=== PATIENT | female | born 1950 | race Caucasian/White ===

== ENCOUNTER 2024-04-05 09:47 | Day surgery (SDC) | payer MEDICARE ==
[2024-03-30 15:58] VITALS: BP 144/84
[~2024-04-05] VITALS: Ht 170.2 cm; Wt 77.7 kg
[~2024-04-05 09:47] MED LIST: IBLOOD GLUCOSE TEST STRIP 1 EA TEST VI PRN; LACTATED RINGER'S 1,000 ML IV SCH; LIDOCAINE HCL 1% 5 ML SDV INJ ONE
[2024-04-05 10:01] VITALS: BP 150/83
[2024-04-05] MEDS ORDERED: LIDOCAINE HCL 2% 5 ML SDV ONE (12:03)
[2024-04-05] MEDS ORDERED: propofoL 200 MG/20 ML VIAL ONE ×2 (12:28→12:29)
[2024-04-05] MEDS ORDERED: FAMOTIDINE 20 MG/ 2 ML VIAL IV PRN (12:45)
[2024-04-05] MEDS ORDERED: OXYCODONE/APAP 5/325 TAB PO PRN (12:45)
[2024-04-05] MEDS ORDERED: NALOXONE HCL 0.4 MG SYR IV PRN (12:45)
[2024-04-05] MEDS ORDERED: MAGNESIUM HYDROXIDE/AL HYDROX 30 ML CUP PO PRN (12:45)
[2024-04-05] MEDS ORDERED: ondansetron HCL 4 MG/2 ML VIAL IV PRN (12:45)
[2024-04-05] MEDS ORDERED: METOCLOPRAMIDE HCL 10 MG/2 ML SDV IV PRN (12:45)
[2024-04-05] MEDS ORDERED: FAMOTIDINE 20 MG TAB PO PRN (12:45)
[2024-04-05 13:01] VITALS: BP 155/92
--- NOTE | 2024-04-05 13:13 | NUR ---
04/05/24 1313 Teena Garcia PATIENT TRANSITIONS HERSELF WITH HER FEET OVER THE EDGE OF THE BED AND SHE TOLERATES THAT WELL. DISCHARGE INSTRUCTIONS ARE REVIEWED AND SHE VERBALIZES UNDERSTANDING. SHE IS GETTING DRESSED BEHIND THE CURTAIN.
--- NOTE | 2024-04-05 18:59 | OR ---
[facility] [address] [place] [id number] Signed DATE OF OPERATION: 04/05/2024 SURGEON: Carolina Fay DO PREOPERATIVE DIAGNOSES: 1. Postmenopausal bleeding. 2. Thickened endometrium on ultrasound. POSTOPERATIVE DIAGNOSES: 1. Postmenopausal bleeding. 2. Thickened endometrium on ultrasound. 3. Rectocele. PROCEDURES PERFORMED: 1. Hysteroscopic dilation and curettage. 2. Polypectomy. ANESTHESIA: MAC. ESTIMATED BLOOD LOSS: 5 mL. FLUIDS DEFICIT: 55 mL. SPECIMENS: Endometrial polyp and curettings. FINDINGS: Normal external genitalia with normal clitoris, urethral meatus, bilateral [place]'s, Bartholin's glands. There is significant rectocele grade 2-3 with good apical and anterior compartment support. On hysteroscopy, normal endocervical canal. There is a small endometrial polyp on the anterior endometrial surface. Otherwise, thin atrophic appearing endometrium consistent with postmenopausal status. Normal uterine anatomy restored. COMPLICATIONS: None. Electronically Signed By: CAROLINA FAY DO (JD) 04/05/24 1859 PATIENT NAME: VAMSHI WELSH OPERATIVE REPORT DATE OF : 54 REPORT #: [id number] PHYSICIAN: CAROLINA FAY DO (JD) PCP: JANELL BAILEY MD REPORT IS CONFIDENTIAL AND NOT TO BE RELEASED WITHOUT AUTHORIZATION [facility] [address] [place] [id number] Signed INDICATIONS: Ms. Welsh is a very pleasant 73-year-old postmenopausal female, who presented with some postcoital bleeding. An ultrasound was performed that demonstrated thickened endometrium consistent with endometrial polyp. The patient was consented for hysteroscopy, dilation and curettage. The patient elected to have the procedure performed in the OR. Risks, benefits, and alternatives were discussed in detail with the patient. The patient understands and wished to proceed with the procedure. DESCRIPTION OF PROCEDURE: The patient was taken to the OR where a time-out was performed to confirm correct patient and correct procedure. MAC anesthesia was adequately established. The patient was prepped and draped in dorsal lithotomy position with her feet in Yellofin stirrups. ICPs were on and running and no preoperative antibiotics or heparin was indicated. A weighted speculum was placed in the vagina. The anterior lip of the cervix was grasped with an Allis clamp. The cervix was easily dilated using Hegar dilators to #7. An operative hysteroscope was placed in the cervical os and advanced under direct visualization of the uterine cavity. Thin endometrium with an endometrial polyp noted on the anterior surface of the endometrial cavity. MyoSure Lite device was selected and polypectomy was performed followed by circumferential curettage of normal atrophic endometrium. The hysteroscope was gently withdrawn and removed. Allis clamp was removed and the uterus noted to be hemostatic. The patient was taken to PACU in good and stable condition. Sponge, needle and instrument counts were correct x2 at the end of procedure. DO GARCIA Patino/LIGIA /[id number] Copies: ~ Electronically Signed By: CAROLINA FAY DO (JD) 04/05/24 1859 PATIENT NAME: BLAISEVAMSHI VALERIO OPERATIVE REPORT DATE OF : 54 REPORT #: [id number] PHYSICIAN: CAROLINA FAY) PCP: JANELL BAILEY MD REPORT IS CONFIDENTIAL AND NOT TO BE RELEASED WITHOUT AUTHORIZATION
--- NOTE | 2024-04-07 10:19 | PATH ---
[facility] [address] [place], [place] [address] Signed SPECIMEN(S): A ENDOMETRIAL CURETTINGS AND POLYP SPECIMEN SOURCE: A. ENDOMETRIAL CURETTINGS AND POLYP CLINICAL HISTORY: PMB; thickened endometrium FINAL PATHOLOGIC DIAGNOSIS: Endometrium, curettage: - Inactive endometrium, and benign endometrial polyp; no hyperplasia or neoplasia identified BRP MICROSCOPIC EXAMINATION: Histologic sections of all submitted blocks are examined by light microscopy. These findings, together with the gross examination, support the pathologic diagnosis. GROSS DESCRIPTION: The specimen, labeled and designated "Cornelio, endometrial curettings and polyp," is received in formalin and consists of multiple fragments of soft naranjo-red tissue and blood measuring 2.2 x 0.3 x 0.1 cm in aggregate. Entirely submitted in (A1). JS (under the direct supervision of a pathologist) The Gross Description was prepared using a voice recognition system. The report was reviewed for accuracy; however, sound-alike word errors, addition and/or deletions may occur. If there is any question about this report, please contact Client Services. ADDITIONAL NOTES: Immunohistochemical and/or in situ hybridization studies if performed in this case included appropriate positive controls that reacted as expected. This test was developed and its performance characteristics determined by [facility]. It has not been cleared or approved by the U.S. Food and Drug Administration. The FDA has determined that such clearance or approval is not necessary. This test is used for clinical purposes. It should not be regarded as investigational or for research. [facility] is certified under the Clinical Laboratory Improvement Amendments of 1988 (CLIA) as qualified to perform high complexity clinical PATIENT NAME: VAMSHI WELSH PATHOLOGY DATE OF : 54 REPORT #: [id number] PHYSICIAN: FARSHAD MENDOZA PCP: JANELL BAILEY MD REPORT IS CONFIDENTIAL AND NOT TO BE RELEASED WITHOUT AUTHORIZATION [facility] [address] [place] [place] [address] Signed laboratory testing. PERFORMING LABORATORY: Technical component was performed by [facility], [address] [place] [address] (CLIA# [id number]). Professional interpretation was performed by [facility] - [facility], [address] [place] [address] (CLIA#: [id number]). Diagnostician: Vicente Laird MD Pathologist Electronically Signed 04/07/2024 Copies: ~ PATIENT NAME: VAMSHI WELSH PATHOLOGY DATE OF : 54 REPORT #: [id number] PHYSICIAN: FARSHAD MENDOZA PCP: JANELL BAILEY MD REPORT IS CONFIDENTIAL AND NOT TO BE RELEASED WITHOUT AUTHORIZATION
== END 2024-04-05 13:13 | disposition home or self-care (01) ==
LOC: DS 09:47 → OPS 09:47 → EDSTATUS 12:00 → DS 12:00 → OPS 13:13
PROVIDERS: ATTEND Obstetrics & Gynecology
PROC: 0UDB8ZZ Extraction of Endometrium, Via Natural or Artificial Opening Endoscopic (ICD-10-PCS; principal; 2024-04-05 12:00)
DX: N84.0 Polyp of corpus uteri (principal); N95.0 Postmenopausal bleeding; Z79.899 Other long term (current) drug therapy; Z88.0 Allergy status to penicillin
CPT/HCPCS: 00952; 88305; J2001; J2704; J7121